=== PATIENT | female | born 1985 | race Caucasian/White ===

== ENCOUNTER 2019-12-03 18:14 | Emergency (ER) | payer BC, SELFPAY ==
--- NOTE | 2019-12-03 18:22 | ED.URI ---
HPI - URI/Sore Throat General Chief Complaint: Upper Respiratory Infection Stated Complaint: difficulty breathing/fever/sore throat/cough Time Seen by Provider: 12/03/19 18:22 Source: patient and RN notes reviewed History of Present Illness HPI Narrative: Patient is a 34-year-old female presents the urgent care with complaints of chest congestion, runny nose, sinus congestion, sore throat, fever, extreme fatigue. Patient states that she has been using Tylenol and ibuprofen for her symptoms. States that symptoms started 2 days ago after flying back from [place] and being exposed to flu A. Patient denies any other acute complaints. No acute distress noted. Patient aware the plan of care. Related Data Home Medications Medication Instructions Recorded Confirmed UP-[id number]/DK-[id number]-bstsqsl cap PO 12/03/19 [Vicks DayQuil-NyQuil] Allergies Allergy/AdvReac Type Severity Reaction Status Date / Time No Known Allergies Allergy Verified 12/03/19 18:31 Review of Systems Review of Systems: Narrative: CONSTITUTIONAL: Reports of chills and sweats without known fever EYES: Denies visual changes, redness, or discharge. ENT: Reports of rhinorrhea, sinus congestion, nasal congestion, sore throat CARDIOVASCULAR: Denies chest pain, palpitations, or edema. RESPIRATORY: Reports of chest congestion and cough without dyspnea GASTROINTESTINAL: Denies abdominal pain, nausea, vomiting, or diarrhea. GENITOURINARY: Denies dysuria or hematuria. SKIN: Denies rash or itching. MUSCULOSKELETAL: Denies back pain, joint pain; reports of fatigue NEUROLOGIC: Denies headache, numbness, or weakness. PMFSH Social History Social History Smoking status: Never smoker Second hand tobacco smoke exposure: No Alcohol intake: never Comments At the time of my signature, I reviewed and agree with the nursing past medical, surgical, social, and family history. There is no relevant family history pertinent to the patient complaint. Exam Narrative: Exam Narrative: GENERAL: This is a well-nourished, well-developed patient, slightly flushed and appears fatigued HEAD: normocephalic, atraumatic. EYES: PERRL. Sclera clear/white. Vision is grossly intact. EARS: External ears normal, auditory canals clear and without drainage, TMs normal without perforation. Hearing grossly intact. NOSE: External nose normal with no obvious nasal discharge, bilateral erythemic nares with clear to yellow rhinorrhea THROAT: Mucous membranes moist, posterior pharynx clear. Moderate postnasal drainage NECK: Neck supple, non-tender without lymphadenopathy CARDIOVASCULAR: Regular rate and rhythm without murmurs, gallops, or rubs. RESPIRATORY: Clear to auscultation. Breath sounds equal bilaterally. No wheezes, rales, or rhonchi. SKIN: warm, intact with no suspicious lesions or rash, good texture and turgor. NEURO: awake, alert, and oriented to person, place and time. There were no obvious focal neurologic abnormalities. EXTREMITIES: No clubbing, cyanosis, or edema. Course Vital Signs Vital signs: Vital Signs Temperature 98.5 F 12/03/19 18:23 Pulse Rate 115 H 12/03/19 18:23 Respiratory Rate 12/03/19 18:23 Blood Pressure 128/76 12/03/19 18:23 Pulse Oximetry 97 12/03/19 18:23 Temperature 98.5 F 12/03/19 18:23 Pulse Rate 115 H 12/03/19 18:23 Respiratory Rate 12/03/19 18:23 Blood Pressure 128/76 12/03/19 18:23 Pulse Oximetry 97 12/03/19 18:23 Reviewed MDM - URI/Sore Throat MDM Narrative Medical decision making narrative: Reviewed lab results with the patient. She is aware that flu swab was negative. Advised patient to treat symptoms as needed with [id number] medications such as Flonase, Claritin, Mucinex, Tylenol, ibuprofen. Increase water intake and rest. Use humidifier at night. If you develop any worsening symptoms associated with high fevers, shortness of breath, productive cough?go to the emergency room. Follow-up with PCP
[2019-12-03 18:23] VITALS: BP 128/76; PULSE 115; RESP 20; TEMP 36.9; O2SAT 97
== END 2019-12-03 18:47 | disposition home or self-care (01) ==
PROVIDERS: Emergency Provider Nurse Practitioner Family
DX: B34.9 Viral infection, unspecified (principal)
CPT/HCPCS: 87804; 99213; G0463

== ENCOUNTER → 2021-01-14 08:19 | Outpatient (CLI) | payer BC, SELFPAY ==
--- NOTE | ~2021-01-14 | US_ITS ---
EXAMINATION: US breast RT limited HISTORY: Palpable lump in the upper outer quadrant of the right breast TECHNIQUE: Limited right breast ultrasound is performed. FINDINGS: There is no evidence of focal abnormal cystic or solid mass in the vicinity of the palpable abnormality of concern. IMPRESSION: No specific sonographic correlate is identified for the reported palpable abnormality of concern. Fur ther evaluation at this time should be based on clinical assessment. Continued follow-up physical exa mination is recommended. BI-RADS Category 1: Negative Reviewed, dictated and finalized at location A. IC WEIGHER IMPRESSION: No specific sonographic correlate is identified for the reported palpable abnor mality of concern. Further evaluation at this time should be based on clinical assessment. Continued follow-up physical examination is recommended. BI-RADS Category 1: Negative
== END ==
PROVIDERS: Visit Provider Nurse Practitioner
DX: N63.11 Unspecified lump in the right breast, upper outer quadrant (principal)
CPT/HCPCS: 76642

== ENCOUNTER 2021-11-08 11:52 | Emergency (ER) | payer BC, SELFPAY ==
[2021-11-08 12:13] VITALS: BP 131/80; PULSE 95; RESP 16; TEMP 37.2; O2SAT 99
--- NOTE | 2021-11-08 13:19 | PC.NURSE ---
Pt presented to triage desk stating that she is going to go to an urgent care due to long wait time here in ED. Encouraged patient to stay but does not wish to. Ambulatory upon leaving in no apparent distress.
== END 2021-11-08 13:19 | disposition left against medical advice (07) ==
LOC: ANHED 13:24
DX: S61.011A Laceration without foreign body of right thumb without damage to nail, initial encounter (principal)
CPT/HCPCS: 99199